=== PATIENT | male | born 1985 | race Caucasian/White ===

== ENCOUNTER 2017-08-08 15:38 | Emergency (ER) | payer BC, OTHER ==
[2017-08-08 15:53] VITALS: BP 142/74
[2017-08-08] MEDS ORDERED: Bacitracin/Neomycin/Polymyxin B Oint 0.9 GM U/D Packet TOP ONE (16:03)
--- NOTE | 2017-08-08 16:03 | EDM.PDOC ---
ED HPI GENERAL MEDICAL PROBLEM - General Chief Complaint: Laceration Stated Complaint: right hand laceration Time Seen by Provider: 08/08/17 15:40 Source of Information: Reports: Patient, Old Records ([facility] EMR. No paper hospital chart available.) History Limitations: Reports: No Limitations - History of Present Illness INITIAL COMMENTS - FREE TEXT/NARRATIVE: The patient was brought to the emergency room via transport vehicle from [facility] for evaluation of a Workmen's Compensation injury, which occurred at about 14: 30 hours this afternoon. The company nurse did not feel that the patient needed to be evaluated, although some bleeding persisted despite multiple Band-Aids. The patient did cut the dorsal surface of his right hand on a metal piece on the mainframe and rinse the laceration several times with tap water. No other treatment or medications to this point. He is right-handed and has not injured this hand in the past. He is somewhat uncertain about his last tetanus shot, however he thinks he received this about 4 years ago in [place]. No history of foreign body, paresthesias, neurological deficits, or other complaints or injuries. The patient denies any chest pain/pressure, heart flutter, dizziness, orthostasis, orthopnea, diaphoresis, paresthesias, recent decreased exercise tolerance, or any other anginal-type symptoms. No recent history of abdominal pain, heartburn, nausea, diarrhea, melena, gross hematochezia, or any food intolerance, including fatty foods, etc.. The patient also denies any recent fever, cough, wheezing, dyspnea, etc.. Onset: Today, Sudden Onset Date: 08/08/17 Onset Time: 12:55 Duration: Constant Location: Reports: Upper Extremity, Right. Denies: Head, Face, Neck, Abdomen, Back, Pelvis, Upper Extremity, Left, Lower Extremity, Left, Radiates to Quality: Reports: Ache Severity: Mild Improves with: Reports: Rest Worsens with: Reports: Movement Context: Reports: Trauma (As above) Associated Symptoms: Denies: Confusion, Chest Pain, Cough, Diaphoresis, Fever/ Chills, Headaches, Loss of Appetite, Malaise, Nausea/Vomiting, Shortness of Breath, Syncope, Weakness Treatments [employer] INS[employer]OR: Reports: Dressing(s) Right Hand Pain Score (Numeric/FACES): 5 - Related Data Allergies Allergy/AdvReac Type Severity Reaction Status Date / Time No Known Drug Allergies Allergy NKDA Verified 08/08/17 15:39 Home Meds: Home Meds ALPRAZolam [Alprazolam] 0.5 - 1 tab PO BID PRN 12/06/14 [History] Acetaminophen with Codeine [Acetaminophen-Cod #3] 1 - 2 tab PO Q6H PRN 12/06/14 [History] Aspirin/Sod Bicarb/Citric Acid [[place]i-[place] Original] 1 tab PO ASDIRECTED 08/08 [History] Fluticasone Propionate [Flonase] 2 spray INH ASDIRECTED 08/08/17 [History] Past Medical History HEENT History: Reports: Allergic Rhinitis, Impaired Vision, Other (See Below) Other HEENT History: Patient wears glasses Respiratory History: Reports: Asthma Gastrointestinal History: Reports: Cholelithiasis, GERD Musculoskeletal History: Reports: Back Pain, Chronic, Osteoarthritis Psychiatric History: Reports: Addiction, Anxiety, Depression, Other (See Below) . Denies: Psych Hospitalization(s) Other Psychiatric History: History of alcohol and tobacco abuse as below - Past Surgical History GI Surgical History: Reports: Cholecystectomy, Other (See Below) Other GI Surgeries/Procedures: Laparoscopic cholecystectomy on 12/08/14 Other Musculoskeletal Surgeries/Procedures:: acl repair left knee - Past Imaging History Past Imaging History: Reports: HIDA Scan (06/19/13), MRI (Lumbar spine) Social & Family History - Tobacco Use Smoking Status *Q: Former Smoker Tobacco Use Within Last Twelve Months: No Years of Tobacco use: 10 Packs/Tins Daily: 3 Used Tobacco, but Quit: Yes Month/Year Tobacco Last Used: Patient smoked between ages 14 and 24 Smoking Cessation Information Provided To Patient: No Second Hand Smoke Exposure: No Second Hand Smoke Education Provided: No - Alcohol Use Alcohol Use History: Yes Days Per Week of Alcohol Use: 0 Number of Drinks Per Day Comment: History of alcohol abuse between the ages 14 and 24 with no previous inpatient care. He has been dry for about 7 years. 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 ED EXAM, SKIN/RASH Exam: See Below Exam Limited By: No Limitations General Appearance: Alert, WD/WN, No Apparent Distress Head: Atraumatic, Normocephalic Neck: Normal Inspection, Supple, Non-Tender, Full Range of Motion. No: Lymphadenopathy (L), Lymphadenopathy (R), Thyromegaly Respiratory/Chest: No Respiratory Distress, Lungs Clear, Normal Breath Sounds, No Accessory Muscle Use, Chest Non-Tender. No: Pleural Rub, Retractions Cardiovascular: Normal Peripheral Pulses, Regular Rate, Rhythm, No Edema, No Gallop, No JVD, No Murmur, No Rub. No: Gallop/S3, Gallop/S4, Friction Rub Peripheral Pulses: 2+: Radial (L), Radial (R) GI/Abdominal: Normal Bowel Sounds, Soft, Non-Tender, No Organomegaly, No Distention, No Abnormal Bruit, No Mass. No: Guarding (Male) Exam: Deferred Rectal (Males) Exam: Deferred Back Exam: Normal Inspection, Full Range of Motion, NT Extremities: Normal Range of Motion, No Pedal Edema, Normal Capillary Refill, Other (1.5 cm in length superficial laceration over the mid dorsal aspect of his right hand with no foreign body, significant nerve/vascular involvement, etc. Only mild palpation pain over laceration site.). No: Kg's Sign Neurological: Alert, Oriented, CN II-XII Intact, Normal Cognition, Normal Gait, No Motor/Sensory Deficits Psychiatric: Normal Affect, Normal Mood Skin: Warm, Dry, Normal Color, No Rash, Tattoo(s) (Multiple), Wound/Incision ( As above) Location, Skin: Upper Extremity, Right Characteristics: Linear Associated features: Tenderness. No: Swelling, Lymphangitis, Inflammation Lymphatic: No Adenopathy ED SKIN PROCEDURES - Laceration/Wound Repair Right Middle Distal Hand Lac/Wound length In cm: 1.5 Appearance: Superficial, Clean Distal NVT: Neuro & Vascular Intact, No Tendon Injury Anesthetic Type: Local Local Anesthesia - Lidocaine (Xylocaine): 1% Plain Local Anesthetic Volume: Other (7 ml) Skin Prep: Providone-Iodine (Betadine) Saline Irrigation (cc's): 0 Exploration/Debridement/Repair: Wound Explored, In a Bloodless Field, Explored to Base, No Foreign Material Found Closed with: Sutures Suture Size: 4-0 # of Sutures: 4 Suture Type: Nylon, Interrupted, Simple Drain Placement: No Sterile Dressing Applied: Nurse Tetanus Status Addressed: Yes Complications: No Course - Vital Signs Last Recorded V/S: Last Vital Signs Temp 36.7 C 08/08/17 15:52 Pulse 72 08/08/17 15:52 Resp 16 08/08/17 15:52 BP 142/74 H 08/08/17 15:52 Pulse Ox 100 08/08/17 15:52 Vital Signs - 24 hr 08/08/17 15:52 Temperature [ 36.7 C Temporal] Pulse, 72 Peripheral [ Pulse Oximetry] Respiratory 16 Rate Blood Pressure 142/74 H [Left Upper Arm ] O2 Sat by Pulse 100 Oximetry - Orders/Labs/Meds Orders: Active Orders 24 hr Category Date Time Status Vaccines to be Administered [RC] PER UNIT ROUTINE Care 08/08/17 16:28 Active Obtain Past Medical Record [OM.PC] Routine Oth 08/08/17 16:03 Active Labs: None Meds: Medications Discontinued Medications Generic Name Dose Route Start Last Admin Trade Name Freq PRN Reason Stop Dose Admin Diphtheria/Tetanus/Acell Pertussis 0.5 ml 08/08/17 16:28 08/08/17 16:55 Adacel IM 08/08/17 16:29 0.5 ml .ONCE ONE Administration Lidocaine HCl 5 ml 08/08/17 16:03 08/08/17 16:46 Xylocaine-Mpf 1% INJECT 08/08/17 16:04 5 ml ONETIME ONE Administration Lidocaine HCl 5 ml 08/08/17 16:28 08/08/17 16:46 Xylocaine-Mpf 1% INJECT 08/08/17 16:29 5 ml ONETIME ONE Administration Neomycin/Polymyxin/Bacitracin 1 each 08/08/17 16:03 08/08/17 16:46 Triple Antibiotic Oint TOP 08/08/17 16:04 1 each ONETIME ONE Administration - Radiology Interpretation Free Text/Narrative:: None Departure - Departure Time of Disposition: 17:20 Disposition: Home, Self-Care 01 Condition: Good Clinical Impression: Laceration, Peptic reflux disease, Asthma, Osteoarthritis, Mixed anxiety depressive disorder - Discharge Information Instructions: Laceration Care, Adult, [id number], Stitches, [place], or Adhesive Wound Closure, [id number] Referrals: PCP,None [Primary Care Provider] - Forms: ED Department Discharge Additional Instructions: 1. Followup with your regular provider in 10-14 days as directed for reevaluation and removal of 4 stitches. 2. Tylenol 650 mg by mouth every 4 hours and/or OTC ibuprofen 2-3 tabs by mouth every 6 hours with food as directed./needed. 3. Antibacterial soap wash/soak with subsequent antibacterial dressing such as Neosporin, etc. as directed 2 times per day until the wound or laceration site completely heals. Keep the area clean and dry with activity restrictions as discussed, including 10 pound lifting restriction with your right hand until otherwise directed. 4. Work excuse- See Form 5. Immediately after this visit verify that your cellular telephone's voicemail has been activated and is empty. Also verify that your home telephone 's answering machine is operating properly and has space to receive messages. Note that it is sometimes necessary for us to be able to contact you at a later date to discuss your medical care. - Problem List & Annotations (1) Laceration SNOMED Code(s): 992537219 Code(s): CQP9102 - Status: Acute Priority: High Current Visit: Yes Onset Date: 08/08/17 Annotation/Comment:: Excellent results with laceration repair as above. Last tetanus booster in [place] could not be confirmed with patient agreeing to recommended DTaP, which was given today. Work excuse/ [employer] form and Workmen's Compensation forms were completed. Activity restrictions and wound care were discussed. (2) Asthma SNOMED Code(s): 322953836 Code(s): J45.909 - UNSPECIFIED ASTHMA, UNCOMPLICATED Status: Chronic Priority: Medium Current Visit: Yes Annotation/Comment:: Stable by history with no recent fever or bronchitic type symptoms. Patient congratulated about stopping smoking. Qualifiers: Asthma severity: mild Asthma persistence: intermittent Asthma complication type: uncomplicated Qualified Code(s): J45.20 - Mild intermittent asthma, uncomplicated (3) Mixed anxiety depressive disorder SNOMED Code(s): 770489520 Code(s): F41.8 - OTHER SPECIFIED ANXIETY DISORDERS Status: Chronic Priority: Medium Current Visit: Yes Annotation/Comment:: Stable by history. Note previous alcohol addiction. (4) Osteoarthritis SNOMED Code(s): 962416171 Code(s): M19.90 - UNSPECIFIED OSTEOARTHRITIS, UNSPECIFIED SITE Status: Chronic Priority: Medium Current Visit: Yes Annotation/Comment:: Stable by history Qualifiers: Osteoarthritis location: multiple joints Osteoarthritis type: primary Qualified Code(s): M15.0 - Primary generalized (osteo)arthritis (5) Peptic reflux disease SNOMED Code(s): 274780619 Code(s): K21.9 - GASTRO-ESOPHAGEAL REFLUX DISEASE WITHOUT ESOPHAGITIS Status: Chronic Priority: Medium Current Visit: Yes Annotation/Comment:: Stable by history with no significant problems after laparoscopic cholecystectomy as above. - Problem List Review Problem List Initiated/Reviewed/Updated: Yes - My Orders Last 24 Hours: My Active Orders 08/08/17 16:03 Obtain Past Medical Record [OM.PC] Routine 08/08/17 16:28 Vaccines to be Administered [RC] PER UNIT ROUTINE - Assessment/Plan Last 24 Hours: My Active Orders 08/08/17 16:03 Obtain Past Medical Record [OM.PC] Routine 08/08/17 16:28 Vaccines to be Administered [RC] PER UNIT ROUTINE Assessment:: As above Plan: As above. Extensive precautions were given to the patient, who is in agreement with the treatment plan. See Patient Instructions for further treatment and plan.
[2017-08-08] MEDS ORDERED: Diphtheria,Pertussis(Acell),Tetanus Vaccine 0.5 ML SDV IM ONE (16:28)
== END 2017-08-08 17:20 | disposition home or self-care (01) ==
LOC: LL.ED 15:38
DX: S61.411A Laceration without foreign body of right hand, initial encounter (principal); K21.9 Gastro-esophageal reflux disease without esophagitis; J45.909 Unspecified asthma, uncomplicated; M19.90 Unspecified osteoarthritis, unspecified site; F41.8 Other specified anxiety disorders; Z87.891 Personal history of nicotine dependence; Z23 Encounter for immunization; W45.8XXA Other foreign body or object entering through skin, initial encounter; Y99.0 Civilian activity done for income or pay
CPT/HCPCS: 12001; 90471; 90715; 99283